=== PATIENT | female | born 1935 | race Caucasian/White ===

== ENCOUNTER 2021-02-14 12:17 | Emergency (ER) | payer OTHER ==
[2021-02-14 13:28] VITALS: BP 147/77; PULSE 83; TEMP 98.2; BMI 26.2
== END 2021-02-14 16:03 | disposition home or self-care (01) ==
LOC: FER 12:17
DX: M79.604 Pain in right leg (principal)
CPT/HCPCS: 93971-TC; 99284-25

== ENCOUNTER 2023-01-13 17:56 | Emergency (ER) | payer OTHER ==
[2023-01-13 18:10] VITALS: RESP 18; TEMP 98.2; BMI 28.2
[2023-01-13] MEDS ORDERED: ACETAMINOPHEN 500 MG TABLET (FP) PO ONE (19:35)
[2023-01-13] MEDS ORDERED: ACETAMINOPHEN 325 MG TABLET (FP) ONE (19:38)
[2023-01-13 20:47] LABS: BASO % 1.1 % (0-2.0); EOS % 1.5 % (0-4.5); HEMATOCRIT 39.6 % (32.4-45.2); LYMPH % 15.3 % (8-40); MCH 27.9 pg (25.7-33.7); MCHC 32.8 g/dl (32.0-36.0); MEAN CELL VOLUME 85.1 fl (80-96); MEAN PLT VOLUME 10.1 fl (7.5-11.1); NEUT % 76.1 % (42.8-82.8); PLATELET COUNT 340 10^3/uL (134-434); RBC 4.66 M/mm3 (3.60-5.2); RDW 20.9 % (11.6-15.6); WHITE BLOOD COUNT 11.6 K/mm3 (4.0-10.0)
[2023-01-13 20:56] LABS: INR 1.42 (0.83-1.09); PROTHROMBIN TIME (PATIENT) 16.4 SEC (9.7-13.0)
[2023-01-13 20:59] LABS: ACTIVATED PTT 33.6 SECONDS (25.2-36.5)
[2023-01-13 21:10] LABS: ANISOCYTOSIS 3+; MACROCYTOSIS 0; POTASSIUM 4.8 mmol/L (3.5-5.1); TEAR DROP CELLS 1+
[2023-01-13 21:15] LABS: ALBUMIN 3.9 g/dl (3.4-5.0); BLOOD UREA NITROGEN 22.1 mg/dL (7-18); CALCIUM 9.8 mg/dL (8.5-10.1)
[2023-01-13 21:20] LABS: BILIRUBIN,TOTAL 0.6 mg/dL (0.2-1); TOT PROT 7.1 g/dl (6.4-8.2)
[2023-01-13 23:03] VITALS: BP 156/70; PULSE 77
== END 2023-01-13 23:07 | disposition home or self-care (01) ==
LOC: JER 17:56
DX: S60.211A Contusion of right wrist, initial encounter (principal); R07.2 Precordial pain; M25.562 Pain in left knee; V49.40XA Driver injured in collision with unspecified motor vehicles in traffic accident, initial encounter; Y92.9 Unspecified place or not applicable
CPT/HCPCS: 36415; 70450-TC; 71250-TC; 72125-TC; 73110-TC-RT-FY; 73130-TC-RT-FY; 73562-TC-LT-FY; 74176-TC; 80053; 82550; 84484; 85025; 85610; 85730; 86850; 86900; 86901; 93005; 93010; 99285-25

== ENCOUNTER 2023-03-01 10:48 | Inpatient (IN) | payer OTHER ==
[2023-03-01 12:08] LABS: HEMATOCRIT 36.8 % (32.4-45.2); HEMOGLOBIN 12.1 GM/dL (10.7-15.3); MCH 28.7 pg (25.7-33.7); MEAN CELL VOLUME 86.9 fl (80-96); MEAN PLT VOLUME 9.2 fl (7.5-11.1); PLATELET COUNT 319 10^3/uL (134-434); RBC 4.23 M/mm3 (3.60-5.2); RDW 21.4 % (11.6-15.6); WHITE BLOOD COUNT 8.3 K/mm3 (4.0-10.0)
[2023-03-01 12:11] LABS: INR 1.24 (0.83-1.09); PROTHROMBIN TIME (PATIENT) 14.3 SEC (9.7-13.0)
[2023-03-01 12:14] LABS: ACTIVATED PTT 26.9 SECONDS (25.2-36.5)
[2023-03-01 12:28] LABS: POTASSIUM 4.6 mmol/L (3.5-5.1)
[2023-03-01 12:30] LABS: CALCIUM 12.7 mg/dL (8.5-10.1)
[2023-03-01 12:31] LABS: BLOOD UREA NITROGEN 21.1 mg/dL (7-18)
[2023-03-01 12:34] LABS: CREATININE 0.9 mg/dL (0.55-1.3)
[2023-03-01 12:35] LABS: BILIRUBIN,TOTAL 0.9 mg/dL (0.2-1); TOT PROT 6.2 g/dl (6.4-8.2)
[2023-03-01 12:39] LABS: N-TERMINAL BNP 1058.4 pg/ml (5-450)
[2023-03-01 13:35] LABS: ANISOCYTOSIS 2+; MACROCYTOSIS 0
[2023-03-01] MEDS ORDERED: FUROSEMIDE 40 MG/4 ML INJECTABLE VIAL IVPUSH ONE (13:58)
[2023-03-01] MEDS ORDERED: FUROSEMIDE 40 MG/4 ML INJECTABLE VIAL ONE (14:22)
[2023-03-01] MEDS ORDERED: ACETAMINOPHEN 500 MG TABLET (FP) PO ONE (14:45)
[2023-03-01] MEDS ORDERED: ACETAMINOPHEN 325 MG TABLET (FP) ONE (14:47)
[2023-03-01] MEDS ORDERED: ATORVASTATIN CA 10 MG TABLET (FP) ONE (22:38)
[2023-03-01] MEDS: ATORVASTATIN CA 10 MG TABLET (FP) PO SCH (22:49)
[2023-03-02] MEDS ORDERED: LEVOTHYROXINE NA 50 MCG TABLET (FP) ONE (08:03)
[2023-03-02] MEDS: LEVOTHYROXINE NA 50 MCG TABLET (FP) PO SCH (08:06)
[2023-03-02 09:03] LABS: POTASSIUM 3.2 mmol/L (3.5-5.1)
[2023-03-02 09:06] LABS: ALBUMIN 2.9 g/dl (3.4-5.0); CALCIUM 11.2 mg/dL (8.5-10.1); MAGNESIUM 1.9 mg/dL (1.8-2.4)
[2023-03-02 09:07] LABS: BLOOD UREA NITROGEN 25.4 mg/dL (7-18)
[2023-03-02 09:10] LABS: CREATININE 0.9 mg/dL (0.55-1.3)
[2023-03-02 09:11] LABS: BILIRUBIN,TOTAL 0.7 mg/dL (0.2-1); TOT PROT 5.6 g/dl (6.4-8.2)
[2023-03-02] MEDS: ASPIRIN 81 MG CHEWABLE TABLETS PO SCH (09:23)
[2023-03-02] MEDS: NEBIVOLOL 5 MG TABLET (FP) PO SCH ×2 (09:23→09:50)
[2023-03-02] MEDS: CLOPIDOGREL BISULFATE 75 MG TABLET (FP) PO SCH (09:23)
[2023-03-02 09:26] LABS: HEMATOCRIT 33.1 % (32.4-45.2); HEMOGLOBIN 10.8 GM/dL (10.7-15.3); MCH 28.4 pg (25.7-33.7); MCHC 32.7 g/dl (32.0-36.0); MEAN CELL VOLUME 86.7 fl (80-96); MEAN PLT VOLUME 9.6 fl (7.5-11.1); PLATELET COUNT 291 10^3/uL (134-434); RBC 3.82 M/mm3 (3.60-5.2); RDW 21.5 % (11.6-15.6); WHITE BLOOD COUNT 6.3 K/mm3 (4.0-10.0)
[2023-03-02 10:06] LABS: ANISOCYTOSIS 0; HELMET CELLS 0; HOWELL-JOLLY BODIES 0; MACROCYTOSIS 0; OVALOCYTE 0; ROULEAU 0; SICKELED CELLS 0; TARGET CELLS 0; TEAR DROP CELLS 0; TOXIC GRANULATION 0
[2023-03-02] MEDS ORDERED: POTASSIUM CHLORIDE ORAL LIQUID 20 MEQ/15 ML PO ONE (10:43)
[2023-03-02] MEDS ORDERED: POTASSIUM CHLORIDE ORAL LIQUID 20 MEQ/15 ML ONE (11:22)
[2023-03-02] MEDS: ATORVASTATIN CA 10 MG TABLET (FP) PO SCH (22:07)
[2023-03-02] MEDS: POTASSIUM CHLORIDE ORAL LIQUID 20 MEQ/15 ML PO SCH (22:08)
[2023-03-03] MEDS: LEVOTHYROXINE NA 50 MCG TABLET (FP) PO SCH (06:12)
[2023-03-03 07:38] LABS: HEMATOCRIT 31.8 % (32.4-45.2); HEMOGLOBIN 10.6 GM/dL (10.7-15.3); MCH 29.1 pg (25.7-33.7); MCHC 33.4 g/dl (32.0-36.0); MEAN CELL VOLUME 87.3 fl (80-96); MEAN PLT VOLUME 9.5 fl (7.5-11.1); PLATELET COUNT 288 10^3/uL (134-434); RBC 3.65 M/mm3 (3.60-5.2); RDW 21.3 % (11.6-15.6); WHITE BLOOD COUNT 6.7 K/mm3 (4.0-10.0)
[2023-03-03 07:59] LABS: POTASSIUM 3.9 mmol/L (3.5-5.1)
[2023-03-03 08:01] LABS: CALCIUM 11.5 mg/dL (8.5-10.1)
[2023-03-03 08:02] LABS: BLOOD UREA NITROGEN 25.7 mg/dL (7-18)
[2023-03-03 08:05] LABS: ALBUMIN 2.9 g/dl (3.4-5.0)
[2023-03-03 08:06] LABS: BILIRUBIN,TOTAL 0.4 mg/dL (0.2-1); TOT PROT 5.5 g/dl (6.4-8.2)
[2023-03-03 08:54] LABS: ANISOCYTOSIS 0; MACROCYTOSIS 0
[2023-03-03] MEDS: POTASSIUM CHLORIDE ORAL LIQUID 20 MEQ/15 ML PO SCH ×2 (10:16→21:17)
[2023-03-03] MEDS: CLOPIDOGREL BISULFATE 75 MG TABLET (FP) PO SCH (10:17)
[2023-03-03] MEDS: ASPIRIN 81 MG CHEWABLE TABLETS PO SCH (10:17)
[2023-03-03] MEDS: FUROSEMIDE 40 MG/4 ML INJECTABLE VIAL IVPUSH SCH (10:17)
[2023-03-03] MEDS: FLUTICASONE/UMECLIDIN/VILANTER(200-62.5-25 TRELEGY ELLIPTA) INAHLER IH SCH (10:25)
[2023-03-03] MEDS: NEBIVOLOL 5 MG TABLET (FP) PO SCH (15:58)
[2023-03-03] MEDS: CEFTRIAXONE 1 GM in DEXTROSE 5%-WATER - 50 ML IVPB SCH (16:07)
[2023-03-03] MEDS: ATORVASTATIN CA 10 MG TABLET (FP) PO SCH (21:20)
[2023-03-04] MEDS: LEVOTHYROXINE NA 50 MCG TABLET (FP) PO SCH (06:28)
[2023-03-04] MEDS: POTASSIUM CHLORIDE ORAL LIQUID 20 MEQ/15 ML PO SCH ×2 (10:32→21:51)
[2023-03-04] MEDS: FUROSEMIDE 40 MG/4 ML INJECTABLE VIAL IVPUSH SCH (10:33)
[2023-03-04] MEDS: ASPIRIN 81 MG CHEWABLE TABLETS PO SCH (10:33)
[2023-03-04] MEDS: CLOPIDOGREL BISULFATE 75 MG TABLET (FP) PO SCH (10:33)
[2023-03-04] MEDS: CEFTRIAXONE 1 GM in DEXTROSE 5%-WATER - 50 ML IVPB SCH (10:33)
[2023-03-04] MEDS: FLUTICASONE/UMECLIDIN/VILANTER(200-62.5-25 TRELEGY ELLIPTA) INAHLER IH SCH (10:34)
[2023-03-04 12:47] LABS: HEMATOCRIT 35.1 % (32.4-45.2); HEMOGLOBIN 11.5 GM/dL (10.7-15.3); MCH 28.6 pg (25.7-33.7); MCHC 32.9 g/dl (32.0-36.0); MEAN CELL VOLUME 86.9 fl (80-96); MEAN PLT VOLUME 9.4 fl (7.5-11.1); PLATELET COUNT 293 10^3/uL (134-434); RBC 4.03 M/mm3 (3.60-5.2); RDW 21.8 % (11.6-15.6); WHITE BLOOD COUNT 7.4 K/mm3 (4.0-10.0)
[2023-03-04 13:28] LABS: ALBUMIN 3.2 g/dl (3.4-5.0); CALCIUM 12.4 mg/dL (8.5-10.1)
[2023-03-04 13:29] LABS: BLOOD UREA NITROGEN 24.1 mg/dL (7-18)
[2023-03-04 13:32] LABS: CREATININE 0.9 mg/dL (0.55-1.3)
[2023-03-04 13:33] LABS: BILIRUBIN,TOTAL 0.5 mg/dL (0.2-1); TOT PROT 5.9 g/dl (6.4-8.2)
[2023-03-04 13:42] LABS: ANISOCYTOSIS 2+; MACROCYTOSIS 0
[2023-03-04 14:12] VITALS: BMI 25.8
[2023-03-04] MEDS ORDERED: SODIUM CHLORIDE 0.45% 1,000 ML IV SCH (14:15)
[2023-03-04] MEDS: methylPREDNISolone NA SUCC 40 MG/1 ML VIAL IVPUSH SCH ×2 (14:19→20:34)
[2023-03-04] MEDS: NEBIVOLOL 5 MG TABLET (FP) PO SCH (14:40)
[2023-03-04] MEDS: ALBUTEROL SO4 2.5/IPRATROPIUM 0.5 INH SOL 3 ML VIAL.NEB. NEB SCH ×2 (15:54→21:18)
[2023-03-04] MEDS: ATORVASTATIN CA 10 MG TABLET (FP) PO SCH ×2 (21:51→21:55)
[2023-03-05] MEDS: methylPREDNISolone NA SUCC 40 MG/1 ML VIAL IVPUSH SCH (03:21)
[2023-03-05] MEDS: LEVOTHYROXINE NA 50 MCG TABLET (FP) PO SCH (06:05)
[2023-03-05 07:46] LABS: BASO % 1.1 % (0-2.0); EOS % 1.6 % (0-4.5); HEMATOCRIT 34.8 % (32.4-45.2); HEMOGLOBIN 11.5 GM/dL (10.7-15.3); LYMPH % 9.1 % (8-40); MCH 28.8 pg (25.7-33.7); MCHC 32.9 g/dl (32.0-36.0); MEAN CELL VOLUME 87.4 fl (80-96); MEAN PLT VOLUME 9.7 fl (7.5-11.1); MONO % 6.4 % (3.8-10.2); NEUT % 81.8 % (42.8-82.8); PLATELET COUNT 332 10^3/uL (134-434); RBC 3.98 M/mm3 (3.60-5.2); RDW 21.6 % (11.6-15.6)
[2023-03-05 07:54] LABS: POTASSIUM 4.6 mmol/L (3.5-5.1)
[2023-03-05 07:56] LABS: ALBUMIN 3.4 g/dl (3.4-5.0); BLOOD UREA NITROGEN 23.8 mg/dL (7-18); CALCIUM 11.5 mg/dL (8.5-10.1)
[2023-03-05 07:59] LABS: CREATININE 0.9 mg/dL (0.55-1.3)
[2023-03-05 08:01] LABS: BILIRUBIN,TOTAL 0.3 mg/dL (0.2-1); TOT PROT 6.3 g/dl (6.4-8.2)
[2023-03-05] MEDS: ALBUTEROL SO4 2.5/IPRATROPIUM 0.5 INH SOL 3 ML VIAL.NEB. NEB SCH ×4 (09:45→20:00)
[2023-03-05 10:00] LABS: ANISOCYTOSIS 2+; MACROCYTOSIS 1+
[2023-03-05] MEDS: CEFTRIAXONE 1 GM in DEXTROSE 5%-WATER - 50 ML IVPB SCH (10:04)
[2023-03-05] MEDS: predniSONE 10 MG TABLET (UD) PO SCH (10:05)
[2023-03-05] MEDS: CLOPIDOGREL BISULFATE 75 MG TABLET (FP) PO SCH (10:06)
[2023-03-05] MEDS: ASPIRIN 81 MG CHEWABLE TABLETS PO SCH (10:06)
[2023-03-05] MEDS: FUROSEMIDE 40 MG TABLET (FP) PO SCH (10:06)
[2023-03-05] MEDS: NEBIVOLOL 5 MG TABLET (FP) PO SCH (10:09)
[2023-03-05] MEDS: FLUTICASONE/UMECLIDIN/VILANTER(200-62.5-25 TRELEGY ELLIPTA) INAHLER IH SCH (10:13)
[2023-03-05] MEDS: POTASSIUM CHLORIDE ORAL LIQUID 20 MEQ/15 ML PO SCH ×2 (10:13→21:27)
[2023-03-05 18:57] VITALS: RESP 18
[2023-03-05] MEDS: ATORVASTATIN CA 10 MG TABLET (FP) PO SCH (21:27)
[2023-03-06 02:51] VITALS: PULSE 78
[2023-03-06 05:50] VITALS: BP 141/57; TEMP 97.6
[2023-03-06] MEDS: LEVOTHYROXINE NA 50 MCG TABLET (FP) PO SCH (06:25)
[2023-03-06] MEDS: ALBUTEROL SO4 2.5/IPRATROPIUM 0.5 INH SOL 3 ML VIAL.NEB. NEB SCH ×2 (07:34→11:28)
[2023-03-06] MEDS: NEBIVOLOL 5 MG TABLET (FP) PO SCH (10:14)
[2023-03-06] MEDS: FUROSEMIDE 40 MG TABLET (FP) PO SCH (10:14)
[2023-03-06] MEDS: predniSONE 10 MG TABLET (UD) PO SCH (10:14)
[2023-03-06] MEDS: CEFTRIAXONE 1 GM in DEXTROSE 5%-WATER - 50 ML IVPB SCH (10:15)
[2023-03-06] MEDS: FLUTICASONE/UMECLIDIN/VILANTER(200-62.5-25 TRELEGY ELLIPTA) INAHLER IH SCH (10:15)
[2023-03-06] MEDS: POTASSIUM CHLORIDE ORAL LIQUID 20 MEQ/15 ML PO SCH (10:15)
[2023-03-06] MEDS: CLOPIDOGREL BISULFATE 75 MG TABLET (FP) PO SCH (10:15)
[2023-03-06] MEDS: ASPIRIN 81 MG CHEWABLE TABLETS PO SCH (10:15)
[2023-03-06 13:16] LABS: ALBUMIN 3.6 g/dl (3.4-5.0); BLOOD UREA NITROGEN 37.8 mg/dL (7-18)
[2023-03-06 13:19] LABS: CREATININE 0.9 mg/dL (0.55-1.3)
[2023-03-06 13:20] LABS: BILIRUBIN,TOTAL 0.4 mg/dL (0.2-1)
[2023-03-06 13:21] LABS: TOT PROT 6.6 g/dl (6.4-8.2)
== END 2023-03-06 13:15 | disposition home or self-care (01) | DRG 291 ==
LOC: JER 10:48 → JERBED 13:59 → J4W 03-02 15:48
PROVIDERS: ADMIT Family Medicine; ATTEND Family Medicine
DX: I11.0 Hypertensive heart disease with heart failure (principal); I50.23 Acute on chronic systolic (congestive) heart failure; J18.9 Pneumonia, unspecified organism; J45.901 Unspecified asthma with (acute) exacerbation; M10.9 Gout, unspecified; E03.9 Hypothyroidism, unspecified; D64.9 Anemia, unspecified; K44.9 Diaphragmatic hernia without obstruction or gangrene; K21.9 Gastro-esophageal reflux disease without esophagitis; K76.89 Other specified diseases of liver; E83.52 Hypercalcemia; I25.10 Atherosclerotic heart disease of native coronary artery without angina pectoris; I34.1 Nonrheumatic mitral (valve) prolapse; R93.89 Abnormal findings on diagnostic imaging of other specified body structures; E78.00 Pure hypercholesterolemia, unspecified; Z95.5 Presence of coronary angioplasty implant and graft; Z86.718 Personal history of other venous thrombosis and embolism
CPT/HCPCS: 0241U-QW; 36415; 71045-TC-FY; 71275-TC; 80053; 80061; 82310; 82652; 82728; 82784; 82962; 83036; 83540; 83550; 83690; 83735; 83880; 83970; 84155; 84165; 84443; 84484; 85025; 85610; 85730; 93005; 93010; 93970-TC; 94640; 94761; 97116-GP; 97161-GP; 99285-25

== ENCOUNTER 2023-03-12 13:51 | Inpatient (IN) | payer OTHER ==
[2023-03-12 17:09] LABS: BASO % 0.8 % (0-2.0); EOS % 0.5 % (0-4.5); HEMATOCRIT 36.4 % (32.4-45.2); LYMPH % 30.9 % (8-40); MCH 28.6 pg (25.7-33.7); MCHC 32.9 g/dl (32.0-36.0); MEAN CELL VOLUME 86.9 fl (80-96); MEAN PLT VOLUME 10.1 fl (7.5-11.1); MONO % 18.8 % (3.8-10.2); PLATELET COUNT 183 10^3/uL (134-434); RBC 4.19 M/mm3 (3.60-5.2); RDW 21.1 % (11.6-15.6); WHITE BLOOD COUNT 3.5 K/mm3 (4.0-10.0)
[2023-03-12 17:35] LABS: POTASSIUM 3.8 mmol/L (3.5-5.1)
[2023-03-12 17:37] LABS: ALBUMIN 3.2 g/dl (3.4-5.0); BLOOD UREA NITROGEN 23.8 mg/dL (7-18); MAGNESIUM 1.9 mg/dL (1.8-2.4)
[2023-03-12 17:40] LABS: CREATININE 0.8 mg/dL (0.55-1.3)
[2023-03-12 17:42] LABS: BILIRUBIN,TOTAL 0.4 mg/dL (0.2-1); TOT PROT 5.6 g/dl (6.4-8.2)
[2023-03-12 17:45] LABS: CALCIUM 10.2 mg/dL (8.5-10.1)
[2023-03-12 17:54] LABS: ANISOCYTOSIS 3+; MACROCYTOSIS 0; TEAR DROP CELLS 1+
[2023-03-13 01:31] VITALS: BMI 24.0
[2023-03-13] MEDS ORDERED: ALBUTEROL SO4 2.5/IPRATROPIUM 0.5 INH SOL 3 ML VIAL.NEB. NEB PRN (07:54)
[2023-03-13 10:17] LABS: BASO % 0.9 % (0-2.0); EOS % 1.7 % (0-4.5); HEMATOCRIT 33.2 % (32.4-45.2); HEMOGLOBIN 11.2 GM/dL (10.7-15.3); LYMPH % 26.6 % (8-40); MCH 28.8 pg (25.7-33.7); MCHC 33.7 g/dl (32.0-36.0); MEAN CELL VOLUME 85.3 fl (80-96); MEAN PLT VOLUME 9.6 fl (7.5-11.1); MONO % 17.8 % (3.8-10.2); PLATELET COUNT 161 10^3/uL (134-434); RDW 21.1 % (11.6-15.6); WHITE BLOOD COUNT 3.6 K/mm3 (4.0-10.0)
[2023-03-13] MEDS: CLOPIDOGREL BISULFATE 75 MG TABLET (FP) PO SCH (10:21)
[2023-03-13] MEDS: NEBIVOLOL 5 MG TABLET (FP) PO SCH (10:21)
[2023-03-13] MEDS: ASPIRIN 81 MG CHEWABLE TABLETS PO SCH (10:21)
[2023-03-13] MEDS: ALLOPURINOL 100 MG TABLET (FP) PO SCH (10:21)
[2023-03-13] MEDS: FUROSEMIDE 40 MG TABLET (FP) PO SCH (10:21)
[2023-03-13] MEDS: POTASSIUM CHLORIDE ORAL LIQUID 20 MEQ/15 ML PO SCH ×2 (10:21→22:43)
[2023-03-13] MEDS: LEVOTHYROXINE NA 50 MCG TABLET (FP) PO SCH (10:21)
[2023-03-13] MEDS: FLUTICASONE/UMECLIDIN/VILANTER(200-62.5-25 TRELEGY ELLIPTA) INAHLER IH SCH (10:22)
[2023-03-13 10:33] LABS: POTASSIUM 3.3 mmol/L (3.5-5.1)
[2023-03-13 10:40] LABS: BLOOD UREA NITROGEN 22.1 mg/dL (7-18); CALCIUM 9.6 mg/dL (8.5-10.1)
[2023-03-13 10:43] LABS: CREATININE 0.7 mg/dL (0.55-1.3)
[2023-03-13] MEDS ORDERED: REMDESIVIR 200 MG in SODIUM CHLORIDE 250 ML IVPB ONE (15:30)
[2023-03-13] MEDS: DEXAMETHASONE SOD PHOSPHATE 10 MG/1 ML VIAL IVPUSH SCH (15:32)
[2023-03-13] MEDS: ALBUTEROL SO4 0.083% IH SOL 2.5 MG/3 ML VIAL.NEB. NEB SCH ×2 (15:53→20:30)
[2023-03-13] MEDS ORDERED: ALBUTEROL SO4 2.5/IPRATROPIUM 0.5 INH SOL 3 ML VIAL.NEB. NEB SCH (16:00)
[2023-03-13] MEDS: ATORVASTATIN CA 10 MG TABLET (FP) PO SCH ×2 (22:43→23:31)
[2023-03-14] MEDS: LEVOTHYROXINE NA 50 MCG TABLET (FP) PO SCH (06:22)
[2023-03-14] MEDS: ALBUTEROL SO4 0.083% IH SOL 2.5 MG/3 ML VIAL.NEB. NEB SCH ×4 (07:45→20:11)
[2023-03-14] MEDS: POTASSIUM CHLORIDE ORAL LIQUID 20 MEQ/15 ML PO SCH ×2 (09:09→21:59)
[2023-03-14] MEDS: NEBIVOLOL 5 MG TABLET (FP) PO SCH (09:09)
[2023-03-14] MEDS: FUROSEMIDE 40 MG TABLET (FP) PO SCH (09:10)
[2023-03-14] MEDS: ASPIRIN 81 MG CHEWABLE TABLETS PO SCH (09:10)
[2023-03-14] MEDS: CLOPIDOGREL BISULFATE 75 MG TABLET (FP) PO SCH (09:10)
[2023-03-14] MEDS: ALLOPURINOL 100 MG TABLET (FP) PO SCH (09:10)
[2023-03-14] MEDS: DEXAMETHASONE SOD PHOSPHATE 10 MG/1 ML VIAL IVPUSH SCH (09:10)
[2023-03-14] MEDS: FLUTICASONE/UMECLIDIN/VILANTER(200-62.5-25 TRELEGY ELLIPTA) INAHLER IH SCH (09:12)
[2023-03-14 11:19] LABS: ALBUMIN 3.1 g/dl (3.4-5.0); BLOOD UREA NITROGEN 27.1 mg/dL (7-18); CALCIUM 10.1 mg/dL (8.5-10.1)
[2023-03-14 11:20] LABS: BILIRUBIN,TOTAL 0.3 mg/dL (0.2-1); TOT PROT 5.8 g/dl (6.4-8.2)
[2023-03-14 11:21] LABS: CREATININE 0.8 mg/dL (0.55-1.3)
[2023-03-14] MEDS: REMDESIVIR 100 MG in SODIUM CHLORIDE 250 ML IVPB SCH (16:07)
[2023-03-14] MEDS: ATORVASTATIN CA 10 MG TABLET (FP) PO SCH (21:58)
[2023-03-15] MEDS: LEVOTHYROXINE NA 50 MCG TABLET (FP) PO SCH (06:46)
[2023-03-15] MEDS: ALBUTEROL SO4 0.083% IH SOL 2.5 MG/3 ML VIAL.NEB. NEB SCH ×4 (07:15→20:34)
[2023-03-15] MEDS: FUROSEMIDE 40 MG TABLET (FP) PO SCH (09:44)
[2023-03-15] MEDS: DEXAMETHASONE SOD PHOSPHATE 10 MG/1 ML VIAL IVPUSH SCH (09:44)
[2023-03-15] MEDS: NEBIVOLOL 5 MG TABLET (FP) PO SCH (09:44)
[2023-03-15] MEDS: CLOPIDOGREL BISULFATE 75 MG TABLET (FP) PO SCH (09:44)
[2023-03-15] MEDS: ALLOPURINOL 100 MG TABLET (FP) PO SCH (09:44)
[2023-03-15] MEDS: ASPIRIN 81 MG CHEWABLE TABLETS PO SCH (09:44)
[2023-03-15] MEDS: POTASSIUM CHLORIDE ORAL LIQUID 20 MEQ/15 ML PO SCH ×2 (09:44→21:13)
[2023-03-15] MEDS: FLUTICASONE/UMECLIDIN/VILANTER(200-62.5-25 TRELEGY ELLIPTA) INAHLER IH SCH (09:46)
[2023-03-15] MEDS: REMDESIVIR 100 MG in SODIUM CHLORIDE 250 ML IVPB SCH (14:51)
[2023-03-15] MEDS: HEPARIN NA (PORCINE) 5,000 UNITS/ML 1ML VIAL SQ SCH (21:13)
[2023-03-15] MEDS: ATORVASTATIN CA 10 MG TABLET (FP) PO SCH (21:13)
[2023-03-16] MEDS: LEVOTHYROXINE NA 50 MCG TABLET (FP) PO SCH (06:23)
[2023-03-16] MEDS: ALBUTEROL SO4 0.083% IH SOL 2.5 MG/3 ML VIAL.NEB. NEB SCH ×4 (08:00→19:40)
[2023-03-16] MEDS: POTASSIUM CHLORIDE ORAL LIQUID 20 MEQ/15 ML PO SCH ×2 (10:06→21:31)
[2023-03-16] MEDS: HEPARIN NA (PORCINE) 5,000 UNITS/ML 1ML VIAL SQ SCH ×2 (10:07→21:31)
[2023-03-16] MEDS: NEBIVOLOL 5 MG TABLET (FP) PO SCH (10:07)
[2023-03-16] MEDS: DEXAMETHASONE SOD PHOSPHATE 10 MG/1 ML VIAL IVPUSH SCH (10:07)
[2023-03-16] MEDS: FUROSEMIDE 40 MG TABLET (FP) PO SCH (10:08)
[2023-03-16] MEDS: ASPIRIN 81 MG CHEWABLE TABLETS PO SCH (10:08)
[2023-03-16] MEDS: ALLOPURINOL 100 MG TABLET (FP) PO SCH (10:08)
[2023-03-16] MEDS: CLOPIDOGREL BISULFATE 75 MG TABLET (FP) PO SCH (11:00)
[2023-03-16] MEDS: FLUTICASONE/UMECLIDIN/VILANTER(200-62.5-25 TRELEGY ELLIPTA) INAHLER IH SCH (11:00)
[2023-03-16] MEDS: REMDESIVIR 100 MG in SODIUM CHLORIDE 250 ML IVPB SCH (15:47)
[2023-03-16] MEDS: ATORVASTATIN CA 10 MG TABLET (FP) PO SCH (21:31)
[2023-03-17] MEDS: LEVOTHYROXINE NA 50 MCG TABLET (FP) PO SCH (06:03)
[2023-03-17] MEDS: ALBUTEROL SO4 0.083% IH SOL 2.5 MG/3 ML VIAL.NEB. NEB SCH ×3 (08:47→15:37)
[2023-03-17] MEDS: POTASSIUM CHLORIDE ORAL LIQUID 20 MEQ/15 ML PO SCH (10:25)
[2023-03-17] MEDS: ALLOPURINOL 100 MG TABLET (FP) PO SCH (10:25)
[2023-03-17] MEDS: NEBIVOLOL 5 MG TABLET (FP) PO SCH (10:25)
[2023-03-17] MEDS: FUROSEMIDE 40 MG TABLET (FP) PO SCH (10:26)
[2023-03-17] MEDS: ASPIRIN 81 MG CHEWABLE TABLETS PO SCH (10:26)
[2023-03-17] MEDS: FLUTICASONE/UMECLIDIN/VILANTER(200-62.5-25 TRELEGY ELLIPTA) INAHLER IH SCH (10:26)
[2023-03-17] MEDS: CLOPIDOGREL BISULFATE 75 MG TABLET (FP) PO SCH (10:26)
[2023-03-17] MEDS: HEPARIN NA (PORCINE) 5,000 UNITS/ML 1ML VIAL SQ SCH (10:26)
[2023-03-17] MEDS: DEXAMETHASONE SOD PHOSPHATE 10 MG/1 ML VIAL IVPUSH SCH (10:26)
[2023-03-17] MEDS: REMDESIVIR 100 MG in SODIUM CHLORIDE 250 ML IVPB SCH (14:18)
[2023-03-17 18:02] VITALS: BP 123/58; PULSE 95; RESP 20; TEMP 97.3
== END 2023-03-17 19:14 | DRG 178 ==
LOC: JER 13:51 → JERBED 19:31 → J5S 21:33 → OBSVTOIN 03-14 10:15
PROVIDERS: ADMIT Internal Medicine; ATTEND Family Medicine
PROC: XW033E5 Introduction of Remdesivir Anti-infective into Peripheral Vein, Percutaneous Approach, New Technology Group 5 (ICD-10-PCS; principal; 2023-03-13)
DX: U07.1 COVID-19 (principal); I13.0 Hypertensive heart and chronic kidney disease with heart failure and stage 1 through stage 4 chronic kidney disease, or unspecified chronic kidney disease; I50.22 Chronic systolic (congestive) heart failure; J84.9 Interstitial pulmonary disease, unspecified; E03.9 Hypothyroidism, unspecified; D64.9 Anemia, unspecified; N18.9 Chronic kidney disease, unspecified; I25.10 Atherosclerotic heart disease of native coronary artery without angina pectoris; E78.5 Hyperlipidemia, unspecified; K21.9 Gastro-esophageal reflux disease without esophagitis
CPT/HCPCS: 0241U-QW; 36415; 70450-TC; 71045-TC-FY; 72125-TC; 72170-TC-FY; 80048; 80053; 80061; 83036; 83735; 84443; 85025; 86140; 93005; 93010; 94640; 94761; 97116-GP; 97162-GP; 99285-25; G0378; J0248; J1100; J1644

== ENCOUNTER 2023-08-01 15:44 | Observation (INO) | payer OTHER ==
[2023-08-01 15:59] VITALS: BMI 23.2
[2023-08-01 17:44] LABS: BASO % 1.3 % (0-2.0); EOS % 4.2 % (0-4.5); HEMATOCRIT 38.3 % (32.4-45.2); HEMOGLOBIN 12.9 GM/dL (10.7-15.3); LYMPH % 18.9 % (8-40); MCH 28.6 pg (25.7-33.7); MCHC 33.7 g/dl (32.0-36.0); MEAN CELL VOLUME 85.1 fl (80-96); MEAN PLT VOLUME 9.7 fl (7.5-11.1); MONO % 10.3 % (3.8-10.2); NEUT % 65.3 % (42.8-82.8); PLATELET COUNT 270 10^3/uL (134-434); RBC 4.51 M/mm3 (3.60-5.2); RDW 21.9 % (11.6-15.6); WHITE BLOOD COUNT 8.3 K/mm3 (4.0-10.0)
[2023-08-01 17:50] LABS: INR 1.17 (0.83-1.09); POTASSIUM 4.1 mmol/L (3.5-5.1); PROTHROMBIN TIME (PATIENT) 13.2 SEC (9.7-13.0)
[2023-08-01 17:53] LABS: ACTIVATED PTT 31.2 SECONDS (25.2-36.5); BLOOD UREA NITROGEN 22.4 mg/dL (7-18); MAGNESIUM 2.2 mg/dL (1.8-2.4)
[2023-08-01 17:56] LABS: CREATININE 0.8 mg/dL (0.55-1.3)
[2023-08-01 17:58] LABS: BILIRUBIN,TOTAL 0.7 mg/dL (0.2-1); TOT PROT 6.9 g/dl (6.4-8.2)
[2023-08-01 18:02] LABS: N-TERMINAL BNP 850.2 pg/ml (5-450)
[2023-08-01 18:05] LABS: EPI CELLS 8 /uL (0-25.1); HYALINE CASTS 1 /uL (0-3.1); PH,URINE 6.5 (5.0-8.0); URINE APPEARANCE CLEAR; URINE BACTERIA 12 /uL (0-1359); URINE BILIRUBIN NEGATIVE (NEGATIVE); URINE COLOR YELLOW; URINE GLUCOSE (UA) NEGATIVE (NEGATIVE); URINE KETONE NEGATIVE (NEGATIVE); URINE LEUK ESTERASE TRACE (NEGATIVE); URINE NITRITE NEGATIVE (NEGATIVE); URINE PROTEIN NEGATIVE (NEGATIVE); URINE RBC 5 /uL (0-23.9); URINE UROBILINOGEN 0.2 mg/dL (0.2-1.0); URINE WBC 23 /uL (0-25.8)
[2023-08-01 18:24] LABS: ANISOCYTOSIS 3+; MACROCYTOSIS 0; OVALOCYTE 1+
[2023-08-01] MEDS ORDERED: ASPIRIN 81 MG CHEWABLE TABLETS ONE (21:10)
[2023-08-01] MEDS: ASPIRIN 81 MG CHEWABLE TABLETS PO ONE (21:29)
[2023-08-02] MEDS: ACETAMINOPHEN 325 MG TABLET (FP) PO PRN (03:08)
[2023-08-02] MEDS: LEVOTHYROXINE NA 50 MCG TABLET (FP) PO SCH (06:08)
[2023-08-02 08:36] LABS: HEMOGLOBIN 11.1 GM/dL (10.7-15.3); MCH 29.3 pg (25.7-33.7); MCHC 34.7 g/dl (32.0-36.0); MEAN CELL VOLUME 84.6 fl (80-96); MEAN PLT VOLUME 9.3 fl (7.5-11.1); PLATELET COUNT 227 10^3/uL (134-434); RBC 3.78 M/mm3 (3.60-5.2); RDW 21.6 % (11.6-15.6); WHITE BLOOD COUNT 6.6 K/mm3 (4.0-10.0)
[2023-08-02 08:59] LABS: POTASSIUM 3.6 mmol/L (3.5-5.1)
[2023-08-02 09:17] LABS: CALCIUM 9.9 mg/dL (8.5-10.1)
[2023-08-02 09:19] LABS: BLOOD UREA NITROGEN 22.3 mg/dL (7-18); MAGNESIUM 2.2 mg/dL (1.8-2.4)
[2023-08-02 09:21] LABS: CREATININE 0.7 mg/dL (0.55-1.3); PHOSPHOROUS 2.9 mg/dL (2.5-4.9)
[2023-08-02] MEDS: ASPIRIN 81 MG CHEWABLE TABLETS PO SCH (09:36)
[2023-08-02] MEDS: CLOPIDOGREL BISULFATE 75 MG TABLET (FP) PO SCH (09:36)
[2023-08-02] MEDS: FUROSEMIDE 40 MG TABLET (FP) PO SCH (09:36)
[2023-08-02] MEDS: NEBIVOLOL 5 MG TABLET (FP) PO SCH (09:39)
[2023-08-02] MEDS: ALLOPURINOL 100 MG TABLET (FP) PO SCH (09:40)
[2023-08-02] MEDS ORDERED: ATORVASTATIN CA 10 MG TABLET (FP) PO SCH (22:00)
[2023-08-02] MEDS: LIPITOR 10 MG PO SCH (22:41)
[2023-08-03] MEDS ORDERED: BYSTOLIC 5 MG PO SCH (10:00)
[2023-08-03] MEDS: BYSTOLIC 5 MG PO SCH (12:00)
[2023-08-05 06:25] VITALS: RESP 18
[2023-08-05] MEDS: POTASSIUM CHLORIDE ORAL LIQUID 20 MEQ/15 ML PO SCH (09:20)
[2023-08-05] MEDS: FLUTICASONE/UMECLIDIN/VILANTER(200-62.5-25 TRELEGY ELLIPTA) INAHLER IH SCH (09:22)
[2023-08-05 09:35] LABS: BASO % 1.5 % (0-2.0); EOS % 4.6 % (0-4.5); HEMATOCRIT 36.6 % (32.4-45.2); HEMOGLOBIN 12.5 GM/dL (10.7-15.3); LYMPH % 16.9 % (8-40); MCH 28.8 pg (25.7-33.7); MCHC 34.3 g/dl (32.0-36.0); MEAN CELL VOLUME 84.1 fl (80-96); MEAN PLT VOLUME 9.3 fl (7.5-11.1); MONO % 8.6 % (3.8-10.2); NEUT % 68.4 % (42.8-82.8); PLATELET COUNT 285 10^3/uL (134-434); RBC 4.35 M/mm3 (3.60-5.2); RDW 22.2 % (11.6-15.6); WHITE BLOOD COUNT 8.7 K/mm3 (4.0-10.0)
[2023-08-05 09:59] LABS: POTASSIUM 3.8 mmol/L (3.5-5.1)
[2023-08-05 10:01] LABS: CALCIUM 10.3 mg/dL (8.5-10.1)
[2023-08-05 10:02] LABS: ALBUMIN 3.8 g/dl (3.4-5.0); BLOOD UREA NITROGEN 21.3 mg/dL (7-18)
[2023-08-05 10:05] LABS: CREATININE 0.7 mg/dL (0.55-1.3)
[2023-08-05 10:06] LABS: BILIRUBIN,TOTAL 0.7 mg/dL (0.2-1); TOT PROT 6.3 g/dl (6.4-8.2)
[2023-08-05 10:19] LABS: ANISOCYTOSIS 2+; MACROCYTOSIS 1+
[2023-08-05] MEDS: ALBUTEROL SO4 2.5/IPRATROPIUM 0.5 INH SOL 3 ML VIAL.NEB. NEB SCH (12:36)
[2023-08-05 15:14] VITALS: TEMP 98.3
[2023-08-05 19:16] VITALS: BP 124/54; PULSE 96
== END 2023-08-05 19:23 ==
LOC: JER 15:44 → JERBED 22:19 → J4S 22:46
PROVIDERS: ADMIT Internal Medicine; ATTEND Family Medicine
PROC: 3E0F7GC Introduction of Other Therapeutic Substance into Respiratory Tract, Via Natural or Artificial Opening (ICD-10-PCS; principal; 2023-08-01)
DX: M62.81 Muscle weakness (generalized) (principal); E78.5 Hyperlipidemia, unspecified; I25.10 Atherosclerotic heart disease of native coronary artery without angina pectoris; I50.42 Chronic combined systolic (congestive) and diastolic (congestive) heart failure; I11.0 Hypertensive heart disease with heart failure; Z95.5 Presence of coronary angioplasty implant and graft; E03.9 Hypothyroidism, unspecified; M10.9 Gout, unspecified; Z86.718 Personal history of other venous thrombosis and embolism; N18.9 Chronic kidney disease, unspecified; J84.9 Interstitial pulmonary disease, unspecified; Z86.73 Personal history of transient ischemic attack (TIA), and cerebral infarction without residual deficits; Z88.8 Allergy status to other drugs, medicaments and biological substances
CPT/HCPCS: 0241U-QW; 36415; 70450-TC; 70551-TC; 71045-TC-FY; 72141-TC; 72146-TC; 72148-TC; 80048; 80053; 80061; 81003; 83735; 83880; 84100; 84439; 84443; 84484; 85025; 85027; 85610; 85730; 87086; 93005; 93010; 93970-TC; 94640; 97116-GP; 99285-25; G0378

== ENCOUNTER 2023-10-15 14:12 | Inpatient (IN) | payer OTHER ==
[2023-10-15 15:15] LABS: HEMATOCRIT 35.5 % (32.4-45.2); HEMOGLOBIN 12.1 GM/dL (10.7-15.3); MCH 29.3 pg (25.7-33.7); MCHC 34.2 g/dl (32.0-36.0); MEAN CELL VOLUME 85.9 fl (80-96); MEAN PLT VOLUME 9.4 fl (7.5-11.1); PLATELET COUNT 289 10^3/uL (134-434); RBC 4.13 M/mm3 (3.60-5.2); RDW 20.4 % (11.6-15.6); WHITE BLOOD COUNT 8.7 K/mm3 (4.0-10.0)
[2023-10-15 15:28] LABS: ACTIVATED PTT 25.8 SECONDS (25.2-36.5); INR 1.13 (0.83-1.09)
[2023-10-15 15:46] LABS: POTASSIUM 3.5 mmol/L (3.5-5.1)
[2023-10-15 15:49] LABS: CALCIUM 10.8 mg/dL (8.5-10.1); MAGNESIUM 2.3 mg/dL (1.8-2.4)
[2023-10-15 15:52] LABS: CREATININE 0.9 mg/dL (0.55-1.3); PHOSPHOROUS 3.7 mg/dL (2.5-4.9)
[2023-10-15 15:53] LABS: ANISOCYTOSIS 0; HELMET CELLS 0; HOWELL-JOLLY BODIES 0; MACROCYTOSIS 0; OVALOCYTE 0; ROULEAU 0; SICKELED CELLS 0; TARGET CELLS 0; TEAR DROP CELLS 0; TOXIC GRANULATION 0
[2023-10-15 15:54] LABS: BILIRUBIN,TOTAL 1.2 mg/dL (0.2-1)
[2023-10-15 15:57] LABS: N-TERMINAL BNP 535.8 pg/ml (5-450)
[2023-10-15] MEDS: SODIUM CHLORIDE 0.9% 500 ML INFUS.BAG IV ONE (18:49)
[2023-10-15] MEDS ORDERED: ACETAMINOPHEN INJECTION 100 ML IVPB ONE (21:30)
[2023-10-15] MEDS: ACETAMINOPHEN 1000 MG/100 ML BAG IVPB PRN (21:38)
[2023-10-15 21:54] LABS: EPI CELLS 5 /uL (0-25.1); HYALINE CASTS 0 /uL (0-3.1); PH,URINE 5.5 (5.0-8.0); URINE APPEARANCE CLOUDY; URINE BACTERIA 3033 /uL (0-1359); URINE BILIRUBIN NEGATIVE (NEGATIVE); URINE COLOR YELLOW; URINE GLUCOSE (UA) NEGATIVE (NEGATIVE); URINE KETONE NEGATIVE (NEGATIVE); URINE LEUK ESTERASE 3+ (NEGATIVE); URINE NITRITE NEGATIVE (NEGATIVE); URINE PROTEIN NEGATIVE (NEGATIVE); URINE RBC 21 /uL (0-23.9); URINE UROBILINOGEN 0.2 mg/dL (0.2-1.0); URINE WBC 311 /uL (0-25.8)
[2023-10-16] MEDS: GABAPENTIN 100 MG CAPSULE PO ONE (00:37)
[2023-10-16 07:54] LABS: EOS % 7.3 % (0-4.5); HEMOGLOBIN 10.5 GM/dL (10.7-15.3); LYMPH % 14.4 % (8-40); MCH 29.6 pg (25.7-33.7); MCHC 33.8 g/dl (32.0-36.0); MEAN CELL VOLUME 87.4 fl (80-96); MEAN PLT VOLUME 9.5 fl (7.5-11.1); MONO % 11.8 % (3.8-10.2); NEUT % 65.5 % (42.8-82.8); PLATELET COUNT 235 10^3/uL (134-434); RBC 3.54 M/mm3 (3.60-5.2); RDW 20.1 % (11.6-15.6); WHITE BLOOD COUNT 8.3 K/mm3 (4.0-10.0)
[2023-10-16 08:17] LABS: POTASSIUM 3.1 mmol/L (3.5-5.1)
[2023-10-16 08:27] LABS: CALCIUM 9.7 mg/dL (8.5-10.1)
[2023-10-16 08:28] LABS: BLOOD UREA NITROGEN 29.3 mg/dL (7-18)
[2023-10-16 08:30] LABS: CREATININE 0.6 mg/dL (0.55-1.3)
[2023-10-16] MEDS: FUROSEMIDE 40 MG TABLET (FP) PO SCH (09:26)
[2023-10-16] MEDS: LIDOCAINE 4% PATCH TP SCH (09:26)
[2023-10-16] MEDS: LEVOTHYROXINE NA 50 MCG TABLET (FP) PO SCH (09:26)
[2023-10-16] MEDS: CLOPIDOGREL BISULFATE 75 MG TABLET (FP) PO SCH (09:27)
[2023-10-16] MEDS: GABAPENTIN 100 MG CAPSULE PO SCH (09:27)
[2023-10-16] MEDS: ASPIRIN 81 MG CHEWABLE TABLETS PO SCH (09:28)
[2023-10-16] MEDS: NEBIVOLOL 5 MG PO SCH (11:01)
[2023-10-16 13:20] LABS: BASO % 0.9 % (0-2.0); EOS % 5.8 % (0-4.5); HEMATOCRIT 29.3 % (32.4-45.2); HEMOGLOBIN 10.1 GM/dL (10.7-15.3); LYMPH % 9.6 % (8-40); MCH 29.4 pg (25.7-33.7); MCHC 34.4 g/dl (32.0-36.0); MEAN CELL VOLUME 85.6 fl (80-96); MEAN PLT VOLUME 9.5 fl (7.5-11.1); MONO % 11.2 % (3.8-10.2); NEUT % 72.5 % (42.8-82.8); PLATELET COUNT 245 10^3/uL (134-434); RBC 3.42 M/mm3 (3.60-5.2); RDW 20.6 % (11.6-15.6); WHITE BLOOD COUNT 8.8 K/mm3 (4.0-10.0)
[2023-10-16 14:14] LABS: ANISOCYTOSIS 2+; MACROCYTOSIS 0
[2023-10-16] MEDS: POTASSIUM CHLORIDE ORAL LIQUID 20 MEQ/15 ML PO ONE (15:55)
[2023-10-16] MEDS: ATORVASTATIN 10 MG PO SCH (21:10)
[2023-10-16] MEDS: HEPARIN NA (PORCINE) 5,000 UNITS/ML 1ML VIAL SQ SCH (21:10)
[2023-10-16] MEDS ORDERED: ACETAMINOPHEN 325 MG TABLET (FP) PO PRN (21:17)
[2023-10-16] MEDS: LIDOCAINE PATCH REMOVAL MC SCH (21:29)
[2023-10-17 08:13] LABS: HEMATOCRIT 29.7 % (32.4-45.2); HEMOGLOBIN 10.1 GM/dL (10.7-15.3); LYMPH % 11.4 % (8-40); MCH 29.8 pg (25.7-33.7); MCHC 34.1 g/dl (32.0-36.0); MEAN CELL VOLUME 87.4 fl (80-96); MEAN PLT VOLUME 9.6 fl (7.5-11.1); MONO % 12.9 % (3.8-10.2); NEUT % 70.7 % (42.8-82.8); PLATELET COUNT 238 10^3/uL (134-434); RDW 21.2 % (11.6-15.6); WHITE BLOOD COUNT 9.8 K/mm3 (4.0-10.0)
[2023-10-17 08:36] LABS: POTASSIUM 3.7 mmol/L (3.5-5.1)
[2023-10-17 08:41] LABS: CALCIUM 9.7 mg/dL (8.5-10.1)
[2023-10-17 08:42] LABS: BLOOD UREA NITROGEN 22.6 mg/dL (7-18)
[2023-10-17 08:45] LABS: CREATININE 0.7 mg/dL (0.55-1.3)
[2023-10-17 08:47] LABS: BILIRUBIN,TOTAL 1.3 mg/dL (0.2-1); TOT PROT 5.3 g/dl (6.4-8.2)
[2023-10-18] MEDS: CYANOCOBALAMIN (VITAMIN B-12) 1000 MCG/1 ML VIAL IM SCH (17:23)
[2023-10-18] MEDS: DOCUSATE SODIUM 100 MG CAPSULE (FP) PO PRN (18:57)
[2023-10-19] MEDS: POLYETHYLENE GLYCOL (HEALTHYLAX) 3350 17 GM PACKET PO SCH ×2 (11:50→21:21)
[2023-10-19] MEDS: BISACODYL 10 MG SUPP.RECT PR ONE (11:50)
[2023-10-19] MEDS ORDERED: DOCUSATE SODIUM 100 MG CAPSULE (FP) PO PRN (15:29)
[2023-10-19] MEDS: IMMUN GLOB G(IGG)/PRO/IGA 0-50 200 ML, IMMUN GLOB G(IGG)/PRO/IGA 0-50 50 ML IVPB SCH (15:52)
[2023-10-19] MEDS: CHLORHEXIDINE GLUCONATE 4% CLEANSER FOR DECOLONIZATION TP SCH (21:21)
[2023-10-19] MEDS: HEPARIN NA (PORCINE) 5,000 UNITS/ML 1ML VIAL SQ SCH (21:21)
[2023-10-19] MEDS: MUPIROCIN 2% TOPICAL OINTMENT FOR DECOLONIZATION NS SCH (21:21)
[2023-10-19] MEDS: LIDOCAINE PATCH REMOVAL MC SCH (21:21)
[2023-10-19] MEDS: GABAPENTIN 100 MG CAPSULE PO SCH (21:21)
[2023-10-19] MEDS ORDERED: LIDOCAINE PATCH REMOVAL MC SCH (22:00)
[2023-10-19] MEDS: NON-FORMULARY MED PO SCH (22:17)
[2023-10-20] MEDS: LEVOTHYROXINE NA 50 MCG TABLET (FP) PO SCH (06:31)
[2023-10-20 06:53] LABS: POTASSIUM 4.5 mmol/L (3.5-5.1)
[2023-10-20 06:56] LABS: CALCIUM 9.3 mg/dL (8.5-10.1)
[2023-10-20 06:57] LABS: BLOOD UREA NITROGEN 18.7 mg/dL (7-18)
[2023-10-20 06:59] LABS: BASO % 1.3 % (0-2.0); EOS % 4.8 % (0-4.5); HEMOGLOBIN 9.5 GM/dL (10.7-15.3); LYMPH % 17.5 % (8-40); MCH 29.9 pg (25.7-33.7); MCHC 34.1 g/dl (32.0-36.0); MEAN CELL VOLUME 87.6 fl (80-96); MEAN PLT VOLUME 9.7 fl (7.5-11.1); MONO % 11.5 % (3.8-10.2); NEUT % 64.9 % (42.8-82.8); PLATELET COUNT 249 10^3/uL (134-434); RDW 20.5 % (11.6-15.6)
[2023-10-20 07:00] LABS: CREATININE 0.6 mg/dL (0.55-1.3)
[2023-10-20 07:01] LABS: BILIRUBIN,TOTAL 1.1 mg/dL (0.2-1); TOT PROT 5.5 g/dl (6.4-8.2)
[2023-10-20 07:06] LABS: ALBUMIN 2.3 g/dl (3.4-5.0)
[2023-10-20 09:20] LABS: ANISOCYTOSIS 1+; MACROCYTOSIS 0
[2023-10-20] MEDS: FUROSEMIDE 40 MG TABLET (FP) PO SCH (10:20)
[2023-10-20] MEDS: LIDOCAINE 4% PATCH TP SCH (10:20)
[2023-10-20] MEDS: NON-FORMULARY MED PO SCH (10:22)
[2023-10-20] MEDS: CYANOCOBALAMIN (VITAMIN B-12) 1000 MCG/1 ML VIAL IM SCH (10:23)
[2023-10-20] MEDS: POLYETHYLENE GLYCOL (HEALTHYLAX) 3350 17 GM PACKET PO SCH (14:06)
[2023-10-21 06:48] LABS: BASO % 1.3 % (0-2.0); EOS % 8.2 % (0-4.5); HEMATOCRIT 28.1 % (32.4-45.2); HEMOGLOBIN 9.4 GM/dL (10.7-15.3); LYMPH % 19.8 % (8-40); MCH 29.4 pg (25.7-33.7); MCHC 33.4 g/dl (32.0-36.0); MEAN CELL VOLUME 88.1 fl (80-96); MEAN PLT VOLUME 9.3 fl (7.5-11.1); MONO % 14.3 % (3.8-10.2); NEUT % 56.4 % (42.8-82.8); PLATELET COUNT 256 10^3/uL (134-434); RBC 3.19 M/mm3 (3.60-5.2); RDW 20.5 % (11.6-15.6)
[2023-10-21 07:03] LABS: ALBUMIN 2.1 g/dl (3.4-5.0); CALCIUM 9.2 mg/dL (8.5-10.1)
[2023-10-21 07:04] LABS: BLOOD UREA NITROGEN 19.3 mg/dL (7-18)
[2023-10-21 07:07] LABS: CREATININE 0.6 mg/dL (0.55-1.3); PHOSPHOROUS 2.9 mg/dL (2.5-4.9)
[2023-10-21 07:08] LABS: TOT PROT 5.8 g/dl (6.4-8.2)
[2023-10-21 10:11] LABS: EPI CELLS 2 /uL (0-25.1); HYALINE CASTS 1 /uL (0-3.1); PH,URINE 6.5 (5.0-8.0); URINE APPEARANCE CLEAR; URINE BACTERIA 5232 /uL (0-1359); URINE BILIRUBIN NEGATIVE (NEGATIVE); URINE COLOR YELLOW; URINE GLUCOSE (UA) NEGATIVE (NEGATIVE); URINE KETONE NEGATIVE (NEGATIVE); URINE LEUK ESTERASE 2+ (NEGATIVE); URINE NITRITE NEGATIVE (NEGATIVE); URINE PROTEIN NEGATIVE (NEGATIVE); URINE UROBILINOGEN 4.0 E.U/dl mg/dL (0.2-1.0); URINE WBC 128 /uL (0-25.8)
[2023-10-21 10:13] LABS: URINE RBC 16 /uL (0-23.9)
[2023-10-21] MEDS: PANTOPRAZOLE 40 MG TABLET PO SCH (10:39)
[2023-10-21] MEDS: FLUTICASONE/UMECLIDIN/VILANTER(200-62.5-25 TRELEGY ELLIPTA) INAHLER IH SCH (10:43)
[2023-10-21] MEDS: ACETAMINOPHEN 325 MG TABLET (FP) PO PRN (14:25)
[2023-10-21] MEDS: GABAPENTIN 100 MG CAPSULE PO SCH (21:29)
[2023-10-21] MEDS: HEPARIN NA (PORCINE) 5,000 UNITS/ML 1ML VIAL SQ SCH (21:29)
[2023-10-21] MEDS: NON-FORMULARY MED PO SCH (21:36)
[2023-10-21] MEDS ORDERED: CHLORHEXIDINE GLUCONATE 4% CLEANSER FOR DECOLONIZATION TP SCH (22:00)
[2023-10-21] MEDS ORDERED: MUPIROCIN 2% TOPICAL OINTMENT FOR DECOLONIZATION NS SCH (22:00)
[2023-10-21] MEDS: LIDOCAINE PATCH REMOVAL MC SCH (22:01)
[2023-10-22] MEDS: LEVOTHYROXINE NA 50 MCG TABLET (FP) PO SCH (06:32)
[2023-10-22 08:13] LABS: BASO % 1.4 % (0-2.0); EOS % 6.6 % (0-4.5); HEMATOCRIT 26.6 % (32.4-45.2); HEMOGLOBIN 9.1 GM/dL (10.7-15.3); LYMPH % 18.8 % (8-40); MCHC 34.2 g/dl (32.0-36.0); MEAN CELL VOLUME 87.7 fl (80-96); MEAN PLT VOLUME 9.2 fl (7.5-11.1); MONO % 12.3 % (3.8-10.2); NEUT % 60.9 % (42.8-82.8); PLATELET COUNT 267 10^3/uL (134-434); RBC 3.04 M/mm3 (3.60-5.2); RDW 20.1 % (11.6-15.6); WHITE BLOOD COUNT 5.2 K/mm3 (4.0-10.0)
[2023-10-22 08:21] LABS: POTASSIUM 4.1 mmol/L (3.5-5.1)
[2023-10-22 08:39] LABS: ALBUMIN 2.1 g/dl (3.4-5.0); BLOOD UREA NITROGEN 20.2 mg/dL (7-18)
[2023-10-22 08:40] LABS: BILIRUBIN,TOTAL 0.5 mg/dL (0.2-1); TOT PROT 6.2 g/dl (6.4-8.2)
[2023-10-22 08:41] LABS: CALCIUM 9.1 mg/dL (8.5-10.1); MAGNESIUM 2.1 mg/dL (1.8-2.4)
[2023-10-22 08:42] LABS: CREATININE 0.6 mg/dL (0.55-1.3)
[2023-10-22] MEDS: CYANOCOBALAMIN (VITAMIN B-12) 1000 MCG/1 ML VIAL IM SCH (09:47)
[2023-10-22] MEDS: FUROSEMIDE 40 MG TABLET (FP) PO SCH (09:47)
[2023-10-22] MEDS: LIDOCAINE 4% PATCH TP SCH (09:48)
[2023-10-22] MEDS: NON-FORMULARY MED PO SCH (09:49)
[2023-10-22] MEDS: IMMUN GLOB G(IGG)/PRO/IGA 0-50 200 ML, IMMUN GLOB G(IGG)/PRO/IGA 0-50 50 ML IVPB SCH (14:14)
[2023-10-22] MEDS: ACETAMINOPHEN 325 MG TABLET (FP) PO PRN (20:42)
[2023-10-23] MEDS ORDERED: IMMUN GLOB IVPB SCH (14:00)
[2023-10-23] MEDS ORDERED: IGA IVPB SCH (14:00)
[2023-10-23] MEDS ORDERED: PRO IVPB SCH (14:00)
[2023-10-23] MEDS: IGA IVPB SCH (14:35)
[2023-10-23] MEDS: IMMUN GLOB IVPB SCH (14:35)
[2023-10-23] MEDS: PRO IVPB SCH (14:35)
[2023-10-23 15:11] LABS: WEST NILE VIRUS AB SERUM,IGM Negative (Negative)
[2023-10-24 09:55] LABS: INR 1.24 (0.83-1.09); PROTHROMBIN TIME (PATIENT) 13.9 SEC (9.7-13.0)
[2023-10-24 10:04] LABS: BASO % 0.8 % (0-2.0); EOS % 4.6 % (0-4.5); HEMATOCRIT 30.8 % (32.4-45.2); HEMOGLOBIN 10.4 GM/dL (10.7-15.3); LYMPH % 13.4 % (8-40); MCH 29.6 pg (25.7-33.7); MCHC 33.8 g/dl (32.0-36.0); MEAN CELL VOLUME 87.4 fl (80-96); MEAN PLT VOLUME 9.2 fl (7.5-11.1); MONO % 8.7 % (3.8-10.2); NEUT % 72.5 % (42.8-82.8); PLATELET COUNT 312 10^3/uL (134-434); RBC 3.52 M/mm3 (3.60-5.2); WHITE BLOOD COUNT 6.5 K/mm3 (4.0-10.0)
[2023-10-24 10:09] LABS: POTASSIUM 3.8 mmol/L (3.5-5.1)
[2023-10-24 10:11] LABS: ALBUMIN 2.1 g/dl (3.4-5.0); BLOOD UREA NITROGEN 24.6 mg/dL (7-18); CALCIUM 9.4 mg/dL (8.5-10.1)
[2023-10-24 10:15] LABS: CREATININE 0.8 mg/dL (0.55-1.3)
[2023-10-24 10:16] LABS: BILIRUBIN,TOTAL 0.6 mg/dL (0.2-1); TOT PROT 7.2 g/dl (6.4-8.2)
[2023-10-24 12:21] LABS: BF GLUCOSE (CSF ONLY) 65 mg/dL (40-70)
[2023-10-24 14:12] LABS: CSF COLOR COLORLESS (COLORLESS)
[2023-10-24 14:13] LABS: CSF APPEARANCE CLEAR (CLEAR); CSF WBC 2 mm3 (0-5)
[2023-10-25 23:50] VITALS: BMI 21.7
[2023-10-26 08:00] LABS: CALCIUM 9.7 mg/dL (8.5-10.1)
[2023-10-26 08:01] LABS: BLOOD UREA NITROGEN 22.5 mg/dL (7-18)
[2023-10-26 08:04] LABS: CREATININE 0.6 mg/dL (0.55-1.3)
[2023-10-26 08:13] LABS: HEMATOCRIT 30.2 % (32.4-45.2); HEMOGLOBIN 10.3 GM/dL (10.7-15.3); MCH 29.7 pg (25.7-33.7); MCHC 34.3 g/dl (32.0-36.0); MEAN CELL VOLUME 86.8 fl (80-96); MEAN PLT VOLUME 9.4 fl (7.5-11.1); PLATELET COUNT 292 10^3/uL (134-434); RBC 3.48 M/mm3 (3.60-5.2); RDW 20.5 % (11.6-15.6); WHITE BLOOD COUNT 8.7 K/mm3 (4.0-10.0)
[2023-10-26 10:00] LABS: ANISOCYTOSIS 1+; MACROCYTOSIS 0
[2023-10-26] MEDS: methylPREDNISolone NA SUCC 40 MG/1 ML VIAL IVPUSH SCH (13:27)
[2023-10-26 17:37] LABS: EPI CELLS 17 /uL (0-25.1); HYALINE CASTS 18 /uL (0-3.1); PH,URINE 7.5 (5.0-8.0); URINE APPEARANCE TURBID; URINE BACTERIA >9,000 /uL (0-1359); URINE BILIRUBIN NEGATIVE (NEGATIVE); URINE COLOR YELLOW; URINE GLUCOSE (UA) NEGATIVE (NEGATIVE); URINE KETONE NEGATIVE (NEGATIVE); URINE LEUK ESTERASE 3+ (NEGATIVE); URINE NITRITE NEGATIVE (NEGATIVE); URINE PROTEIN TRACE (NEGATIVE); URINE WBC 542 /uL (0-25.8)
[2023-10-26 23:19] LABS: URIC ACID 4.8 mg/dL (2.6-7.2)
[2023-10-27 09:12] LABS: HEMATOCRIT 28.2 % (32.4-45.2); HEMOGLOBIN 9.6 GM/dL (10.7-15.3); MCH 29.4 pg (25.7-33.7); MCHC 33.9 g/dl (32.0-36.0); MEAN CELL VOLUME 86.9 fl (80-96); MEAN PLT VOLUME 9.1 fl (7.5-11.1); PLATELET COUNT 297 10^3/uL (134-434); RBC 3.25 M/mm3 (3.60-5.2); RDW 19.8 % (11.6-15.6); WHITE BLOOD COUNT 6.9 K/mm3 (4.0-10.0)
[2023-10-27 09:43] LABS: URIC ACID 4.8 mg/dL (2.6-7.2)
[2023-10-27 10:03] LABS: ERYTHROCYTE SEDIMENTATION RATE 78 mm/hr (0-30)
[2023-10-27 10:07] LABS: ANISOCYTOSIS 1+; MACROCYTOSIS 0
[2023-10-28] MEDS: predniSONE 20 MG TABLET (UD) PO SCH (09:56)
[2023-10-28] MEDS: CLOPIDOGREL BISULFATE 75 MG TABLET (FP) PO SCH (09:56)
[2023-10-28 17:07] LABS: IGA CSF 0.37 mg/dL (0.00-0.78)
[2023-10-29 15:11] LABS: ALBUMIN SERUM 2.6 g/dL (3.7-4.7); IG G QN IMMUNOGLOBULIN 3066 mg/dL (586-1602); IGG QN CSF 9.5 mg/dL (0.0-6.7); IGG/ALB RATIO CSF 0.04 (0.00-0.25)
[2023-10-29 15:24] VITALS: BP 121/52; PULSE 93; RESP 24; TEMP 98.1
[2023-10-29 16:10] LABS: ALPHA-1-GLOBULIN,CSF 5.9 % (2.6-7.0); ALPHA-2-GLOBULIN,CSF 7.3 % (3.1-8.7); BETA GLOBULIN,CSF 21.4 % (11.8-21.7); GAMMA GLOBULIN,CSF 14.2 % (3.1-9.1); M-SPIKE CSF Not Observed % (Not Observed); PRE-ALBUMIN CSF 1.4 % (1.4-6.2)
[2023-10-30 06:09] LABS: CMV IgG CSF < 0.20 U/mL (<=0.70); TOXOPLASMA IGG,CSF < 3.0 IU/mL (<=8.8)
[2023-11-01 15:07] LABS: LYME PCR CSF Negative (Negative)
== END 2023-10-29 15:45 | DRG 95 ==
LOC: JER 14:12 → OBSVTOIN 18:24 → JERBED 18:24 → J4W 23:55 → JICU 10-19 15:40 → J4W 10-21 15:27
PROVIDERS: ADMIT Internal Medicine; ATTEND Family Medicine
PROC: 009U3ZZ Drainage of Spinal Canal, Percutaneous Approach (ICD-10-PCS; principal; 2023-10-24)
PROC: B01BZZZ Fluoroscopy of Spinal Cord (ICD-10-PCS; 2023-10-24)
DX: G61.0 Guillain-Barre syndrome (principal); I50.22 Chronic systolic (congestive) heart failure; R26.2 Difficulty in walking, not elsewhere classified; I11.0 Hypertensive heart disease with heart failure; E03.9 Hypothyroidism, unspecified; E78.5 Hyperlipidemia, unspecified; K44.9 Diaphragmatic hernia without obstruction or gangrene; R33.9 Retention of urine, unspecified; E83.52 Hypercalcemia; K76.89 Other specified diseases of liver; R29.898 Other symptoms and signs involving the musculoskeletal system; M19.031 Primary osteoarthritis, right wrist; M10.9 Gout, unspecified; K59.00 Constipation, unspecified; K21.9 Gastro-esophageal reflux disease without esophagitis; I25.10 Atherosclerotic heart disease of native coronary artery without angina pectoris; Z95.5 Presence of coronary angioplasty implant and graft; Z86.718 Personal history of other venous thrombosis and embolism
CPT/HCPCS: 0241U-QW; 36415; 62272; 70450-TC; 71045-TC-FY; 72131-TC; 72146-TC; 72148-TC; 73110-TC-RT-FY; 80048; 80053; 81003; 82550; 82607; 82728; 82746; 82784; 82787; 82945; 82962; 83540; 83550; 83735; 83880; 84100; 84157; 84166; 84425; 84436; 84443; 84481; 84484; 84550; 85025; 85610; 85651; 85730; 86038; 86140; 86431; 86592; 86618; 86625; 86644; 86663; 86664; 86665; 86694; 86735; 86765; 86777; 86787; 86788; 86789; 86850; 86900; 86901; 87070; 87086; 87186; 87205; 87476; 87529; 87798; 87899; 93005; 93010; 97116-GP; 97162-GP; 97163-GP; 99285-25; J0131; J1459; J1644